=== PATIENT | female | born 1945 | race Caucasian/White ===

== ENCOUNTER → 2016-06-16 | Outpatient (CLI) | payer OTHER ==
--- NOTE | 2016-06-16 18:14 | HKNOTE ---
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 She cannot lie on her right s chester. She occasionally gets "charley horses" in the right thigh. The patient has had a history of p revious spine problems. She has had 2 lumbar epidural cortisone injections given to her by Dr. Yeison rowell which gave her "incredible relief." PHYSICAL EXAMINATION: GAIT: The patient's gait is minimally antalgic. VITAL SIGNS: Height 5 feet 8 inches, weight 200 pounds. Blood pressure 138/65, temperature 98.7. EXAMINATION OF THE RIGHT HIP: A full range of motion without pain. Quite marked tenderness over th e right greater trochanter. DIAGNOSIS: Trochanteric bursitis. MANAGEMENT: Under sterile conditions, the patient was given injection of 2 mL of Kenalog and 10 mL of 2% lidocaine distributed between all the tender areas. She will be seen again as necessary. Dictated By: YESICA SIMON/KARTIK Conf#: [id number] DID#: [id number]
== END | disposition home or self-care (01) ==
LOC: HKI 14:19
DX: M70.61 Trochanteric bursitis, right hip (principal)
CPT/HCPCS: 20610; G0463; J3301

== ENCOUNTER → 2016-06-30 | Outpatient (CLI) | payer BC, OTHER ==
--- NOTE | 2016-06-30 22:10 | HKNOTE ---
DATE OF SERVICE: 06/30/2016 The patient has trochanteric bursitis of her left hip. Two weeks ago, I injected her right hip and asked to come back in another 2 weeks because I did not want to give her too much cortisone at the s mason time. PHYSICAL EXAMINATION: The patient has classic trochanteric bursitis of the left hip. MANAGEMENT: Under sterile conditions, the trochanteric bursa of the left hip was given an injection of a total of 80 mg of Kenalog and 10 mL of 2% lidocaine. She will be seen again as necessary. No te that she was getting lumbar epidural cortisone injections from Dr. Burgess, but he retired and he recommended Dr. Gamboa ([phone]). The patient indicates that the last time she had epidural by Dr. Burgess, all her pain in her thighs went away as well. I called Dr. Gamboa today and explained the situation. We faxed over some notes to him including Dr Mona Burgess's notes and she was seen in consultation. If he feels she needs a lumbar epidural injectio n, he will administer it and she will be seen again thereafter for reevaluation. Dictated By: YESICA SIMON/KARTIK Conf#: [id number] DID#: [id number]
== END | disposition home or self-care (01) ==
LOC: HKI 15:28
DX: M70.62 Trochanteric bursitis, left hip (principal)
CPT/HCPCS: 20610; G0463

== ENCOUNTER → 2017-05-12 | Outpatient (CLI) | END | disposition home or self-care (01) ==

== ENCOUNTER → 2017-08-15 | Outpatient (CLI) | END | disposition home or self-care (01) ==